=== PATIENT | male | born 1955 | race African-American/Black ===

== ENCOUNTER 2016-09-24 12:18 | Day surgery (SDC) | payer BC ==
[2016-09-23 12:33] VITALS: BMI 31.4
[2016-09-24] MEDS ORDERED: KETOROLAC TROMETHAMINE 30 MG/1 ML VIAL ONE ×2 (14:27→14:35)
[2016-09-24] MEDS ORDERED: ceFAZolin SODIUM 1 GM VIAL ONE (14:27)
[2016-09-24] MEDS ORDERED: ONDANSETRON 4 MG/2 ML VIAL ONE (14:27)
[2016-09-24] MEDS ORDERED: DEXAMETHASONE SOD PHOSPHATE 4 MG/1 ML VIAL ONE (14:27)
[2016-09-24] MEDS ORDERED: PROPOFOL 20 ML ONE (14:28)
[2016-09-24] MEDS ORDERED: MIDAZOLAM HCL 2 MG/2 ML SINGLE DOSE VIAL ONE ×2 (14:28)
[2016-09-24] MEDS ORDERED: ceFAZolin SODIUM 1 GM VIAL IVPB ONE (14:31)
[2016-09-24] MEDS ORDERED: BACITRACIN 15 GM TUBE TOPICAL OINTMENT ONE (15:14)
[2016-09-24] MEDS ORDERED: BACITRACIN 15 GM TUBE TOPICAL OINTMENT TP ONE (15:20)
[2016-09-24] MEDS ORDERED: LIDOCAINE HCL 1%, 10 MG/ML (20ML VIAL) IJ ONE (15:23)
[2016-09-24] MEDS ORDERED: ONDANSETRON 4 MG/2 ML VIAL IVPUSH PRN (15:34)
[2016-09-24] MEDS ORDERED: oxyCODONE HCL 5 MG TABLET PO PRN (15:34)
[2016-09-24] MEDS ORDERED: PROMETHAZINE HCL 25 MG/1 ML VIAL IVPUSH PRN (15:34)
--- NOTE | 2016-09-24 15:41 | OP ---
Operative Note - Note: Operative Date: 09/24/16 Pre-Operative Diagnosis: Right facial mass Operation: Excision of right facial mass Post-Operative Diagnosis: Same as Pre-op Surgeon: Osmar Lewis Anesthesia: Local, MAC Specimens Removed: Right facial mass Estimated Blood Loss (mls): 50 Operative Report Dictated: Yes
--- NOTE | 2016-09-24 15:41 | HP ---
History & Physical Update - History History: No Change - Physical Physical: No Change - Assessment Assessment: No Change - Plan Plan: No Change Currently as noted:: Right facial mass- for excision
[2016-09-24 16:27] VITALS: TEMP 98.1
--- NOTE | 2016-09-24 16:31 | OP ---
DATE OF OPERATION: 09/24/2016 SURGEON: Paul Lewis MD PREOPERATIVE DIAGNOSIS: Right facial mass. POSTOPERATIVE DIAGNOSIS: Right facial mass. SPECIMEN: Right facial mass. ESTIMATED BLOOD LOSS: 50 mL. ANESTHESIA: MAC/local. REASON FOR PROCEDURE: This is a 61-year-old gentleman who presented to the office for a right facial mass anterior to the right ear that he had for some time. It has increased in size. Because of this, he desired excision. The risks and benefits of the procedure were explained. These included bleeding, infection, recurrence of the mass, injury to surrounding structures including vessel injury, nerve injury, gland injury, hematoma, seroma. It was specifically explained to him about injury to the facial nerve and its sequelae. He understood and signed informed consent. DESCRIPTION OF PROCEDURE: The patient was placed supine on the operating room table. He underwent MAC by Anesthesia. The area was prepped and draped with Betadine in the usual sterile fashion. Timeout was performed. Lidocaine was injected locally. An incision was made over the area of the mass and dissection was performed. This was done with both electrocautery as well as sharp scissors. The mass was fully circumscribed and dissected and sent off the field as specimen. Hemostasis was achieved with both electrocautery and silk suture for control of vessels. Copious irrigation and suction was performed. Hemostasis was noted. The area was packed with Surgicel dressing. A 3-0 Vicryl suture was used to close the deep dermal tissue, and 4-0 Biosyn was used to close the subdermal layer. Steri-Strips were applied and Betadine ointment placed on top. Sterile dressings were applied. The patient tolerated the procedure well, was transferred to recovery room in stable condition. PAUL LEWIS M.D. WENCESLAO/[id number]
[2016-09-24 18:03] VITALS: BP 144/85; PULSE 98
--- NOTE | 2016-10-05 09:04 | PATH ---
Surgical Pathology Report Patient Name: LAYTON GARNETT [facility]. Rec. #: [id number] /Age/Gender: 1955 (Age: 61) / M Account: [id number] Location: AMBULATORY SURG Taken: 09/24/2016 Received: 09/25/2016 Reported: 10/05/2016 Physicians: Osmar Lewis M.D. Specimen(s) Received RIGHT FACIAL MASS Clinical History Right facial mass Final Diagnosis SOFT TISSUE, RIGHT FACIAL MASS, EXCISION: BENIGN FIBROFATTY TISSUE AND SKELETAL MUSCLE WITH PROMINENT REACTIVE LYMPHOID INFILTRATE /HYPERPLASIA (SEE COMMENT). Comment: This case was seen in consultation with hematopathology service at [place], [place] ([id number], Dr. Foley). The diagnosis above reflects the consultation opinion. Sections show fibroadipose tissue with skeletal muscle and a prominent lymphoid infiltrate. The architecture of the lymphoid cells is vaguely nodular. There occasional disrupted follicles. The interfollicular areas are comprised predominantly of small polymorphous lymphocytes with occasional scattered larger cells. Immunohistochemical stains for CD20 and CD3 highlight a mixed population of B-cells and T-cells respectively. The vague germinal centers are positive for CD20 and additionally positive for CD10 and BCL-6. They are negative for BCL-2. Stains for CD21 and CD23 highlight the disrupted follicular dendritic meshworks in the germinal centers. Stain for CD43 and CD5 are similar to CD3; PAX5 is similar to CD20. Stain for CD30 highlight infrequent scattered immunoblasts. Stain for Cyclin-D1 is negative from lymphocytes. The stain for CD138 highlights rare scattered plasma cells. In situ hybridization for [place] and Lambda light chains shows rare plasma cells to be polytypic. DIAMANTE LAMAR is negative. Immunohistochemical stains for CD20, CD3, CD5, PAX5, BCL-6, BCL-2 were performed at [place], [place] ([id number]) and interpreted at [facility]. Electronically Signed Deon Read M.D. Gross Description Received in formalin labeled "right facial mass" are 2 beverly, irregular, unoriented portions of soft tissue measuring 1.2 x 0.8 x 0.6 cm and 1.5 x 0.9 x 0.8 cm. The specimens are inked blue and serially sectioned. Sectioning reveals beverly-yellow fibrous parenchyma. The specimen is entirely submitted in 6 cassettes as follows: 4-5-ugeeddcu submitted smaller portion of tissue; 1-2-kdokabhg submitted larger portion of tissue. 09/25/201609/25/2016
== END 2016-09-24 18:08 | disposition home or self-care (01) ==
LOC: JASUSAT 12:18
PROVIDERS: ATTEND Surgery
PROC: 0KB10ZZ Excision of Facial Muscle, Open Approach (ICD-10-PCS; principal; 2016-09-24 14:00)
DX: D21.0 Benign neoplasm of connective and other soft tissue of head, face and neck (principal)
CPT/HCPCS: 88305-TC; 94760

== ENCOUNTER 2017-09-03 08:42 | Day surgery (SDC) | payer BC ==
[2017-09-03 09:03] LABS: HEMATOCRIT 43.7 % (35.4-49); HEMOGLOBIN 14.6 GM/dL (11.7-16.9); MCH 29.2 pg (25.7-33.7); MCHC 33.4 g/dl (32.0-35.9); MEAN CELL VOLUME 87.3 fl (80-96); MEAN PLT VOLUME 8.7 fl (7.5-11.1); PLATELET COUNT 222 K/MM3 (134-434); RBC 5.01 M/mm3 (4.00-5.60); RDW 13.6 % (11.9-15.9); WHITE BLOOD COUNT 6.5 K/mm3 (4.0-10.0)
[2017-09-03 09:07] VITALS: TEMP 98.4
[2017-09-03] MEDS ORDERED: LIDOCAINE HCL 1%, 10 MG/ML (20ML VIAL) ONE (09:23)
[2017-09-03 09:32] LABS: ALBUMIN 3.8 g/dl (3.4-5.0); ANION GAP 9 (8-16); BILIRUBIN,DIRECT 0.2 mg/dL (0.0-0.2); BILIRUBIN,TOTAL 0.7 mg/dL (0.2-1.0); BLOOD UREA NITROGEN 17 mg/dL (7-18); CALCIUM 9.3 mg/dL (8.5-10.1); CHLORIDE 103 mmol/L (98-107); CO2 27 mmol/L (21-32); CREATININE 0.9 mg/dL (0.7-1.3); GLUCOSE,RANDOM 207 mg/dL (74-106); LDH 184 U/L (87-241); POTASSIUM 4.2 mmol/L (3.5-5.1); SGOT/AST 16 U/L (15-37); SODIUM 139 mmol/L (136-145); URIC ACID 3.9 mg/dL (2.6-7.2)
[2017-09-03 09:33] LABS: INR 1.01 (0.82-1.09); PROTHROMBIN TIME (PATIENT) 11.4 SEC (9.7-13.0)
[2017-09-03 09:34] LABS: ALK PHOS 104 U/L (45-117); SGPT/ALT 33 U/L (12-78); TOT PROT 7.1 g/dl (6.4-8.2)
[2017-09-03 09:36] LABS: ACTIVATED PTT 26.5 SECONDS (26.9-34.4)
[2017-09-03] MEDS ORDERED: IBUPROFEN 600 MG TABLET (FP) PO ONE (10:45)
[2017-09-03 10:54] VITALS: BP 118/69; PULSE 82
--- NOTE | 2017-09-03 10:55 | HP ---
Admitting History and Physical - Admission Chief Complaint: Lymphoma-- For bone marrow History Source: Patient, Medical Record, Transfer Record - Past Medical History Cardiovascular: Yes: HTN, Hyperlipdemia Endocrine: Yes: Diabetes Mellitus - Past Surgical History Past Surgical History: Yes: Appendectomy - Smoking History Smoking history: Never smoked Have you smoked in the past 12 months: No - Alcohol/Substance Use Hx Alcohol Use: No - Social History Other Social History: [employer] working Home Medications - Allergies Allergies/Adverse Reactions: Allergies Allergy/AdvReac Type Severity Reaction Status Date / Time No Known Allergies Allergy Verified 09/24/16 13:07 - Home Medications Home Medications: Ambulatory Orders Aspirin [ASA -] 81 mg PO DAILY tab.chew 06/28/14 Atorvastatin Ca [Lipitor] 10 mg PO HS tablet 06/28/14 Glimepiride [Amaryl -] 4 mg PO BIDAC tablet 06/28/14 Esomeprazole Magnesium [Nexium 24Hr] 40 mg PO DAILY 09/23/16 Insulin Glargine,Hum.rec.anlog [Lantus Solostar PEN (NF)] 16 units SQ ACDIN 08/05 Metformin HCl [Metformin HCl ER] 1,000 mg PO BIDAC 09/23/16 Metoprolol Succinate [Toprol XL -] 25 mg PO DAILY 09/23/16 Pravastatin Sodium [Pravachol (Nf)] 40 mg PO DAILY 09/23/16 Amlodipine/Atorvastatin [Amlodipine-Atorvast 5-10 mg] 1 each PO DAILY 09/24/16 Docusate Sodium [Colace -] 100 mg PO TID #90 capsule 09/24/16 Oxycodone HCl/Acetaminophen [Percocet 5-325 mg Tablet] 1 - 2 tab PO Q6H #28 tab MDD 4 09/24/16 Review of Systems - Review of Systems Constitutional: reports: No Symptoms Eyes: reports: No Symptoms HENT: denies: Difficult Swallowing, Epistaxis Neck: reports: Swollen Glands Cardiovascular: reports: No Symptoms Respiratory: reports: No Symptoms Gastrointestinal: reports: No Symptoms Musculoskeletal: reports: No Symptoms Integumentary: reports: No Symptoms (8 x 4 cm right pre auricular mass) Hematology/Lymphatic: reports: No Symptoms Psychiatric: reports: No Symptoms Physical Examination Vital Signs: Vital Signs Temperature 98.4 F 09/03/17 09:05 Pulse Rate 79 09/03/17 09:05 Respiratory Rate 18 09/03/17 09:05 Blood Pressure 123/75 09/03/17 09:05 O2 Sat by Pulse Oximetry (%) Constitutional: Yes: Well Nourished Eyes: Yes: WNL HENT: Yes: Other ( 8 x4 cm right pre-auricular mass - nodular) Neck: Yes: Supple Cardiovascular: Yes: Regular Rate and Rhythm Respiratory: Yes: Regular Gastrointestinal: Yes: Normal Bowel Sounds, Soft. 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 For bone marrow aspirate biopsy. For sono of left neck mass. Code(s): R22.0 - LOCALIZED SWELLING, MASS AND LUMP, HEAD
--- NOTE | 2017-09-03 11:14 | PROC ---
Bone Marrow Aspiration/Biopsy - Consent Indication: To stage disease Risks and Benefits Explained: Yes Consent on Chart: Yes - Procedure Location: Right Iliac Crest Anesthesia: 1% Lidocaine Sterile Technique: Yes Specimen: Obtained Position: Supine Patient tolerated procedure: Well with minimal pain Sterile Dressing Applied: Yes Remarks: Out patient follow up.
[2017-09-06 00:06] LABS: BETA-2-MICROGLOBULIN 1.3 mg/L (0.6-2.4)
--- NOTE | 2017-09-09 13:05 | PATH ---
Surgical Pathology Report Patient Name: LAYTON GARNETT [facility]. Rec. #: [id number] /Age/Gender: 1955 (Age: 62) / M Account: [id number] Location: AMBULATORY SURG Taken: 09/03/2017 Received: 09/03/2017 Reported: 09/09/2017 Physicians: Jonn Soni M.D. Specimen(s) Received A: BONE MARROW BIOPSY B: BONE MARROW ASPIRATION SMEARS C: BONE MARROW BLOOD Clinical History Cutaneous follicle center lymphoma staging bone marrow Final Diagnosis COMPREHENSIVE FLOW PANEL performed and interpreted at [place], [place] ([id number]) shows the following: INTERPRETATION: NO CLONAL LYMPHOID EXPANSION DETECTED ADDITIONAL TESTS: Cytogenetics FISH See [facility] report ([id number]) for additional details. NHL performed and interpreted at [facility] ([id number]) shows the following: INTERPRETATION: No IGH/BCL2 t(14;18) translocation is detected. No CCND1/IGH t(11;14) translocation is detected. No MYC (8q24) rearrangement is detected. No BCL6 (3q27) rearrangement is detected. COMMENTS: Correlation with pending cytogenetics ([id number]) is recommended. Four multiplex probe stain procedures were performed. See [facility] report for additional details ([id number]) BONE MARROW MORPHOLOGY performed and interpreted at [facility] ([id number]) shows the following: DIAGNOSIS: Bone marrow, aspirate and core biopsy: Normocellular marrow (40-50%) with trilineage hematopoiesis. No evidence of lymphoma. See comment. COMMENT: Flow cytometric analysis of the bone marrow showed no clonal lymphoid expansion. B-cells were polyclonal. See [facility] report for additional details ([id number]) Electronically Signed Freya Dawn M.D. Addendum Reported: 09/15/2017 Addendum Diagnosis CYTOGENETIC KARYOTYPE ANALYSIS performed and interpreted at [facility] ([id number]) shows the following: RESULTS: 46,XY [20] INTERPRETATION: Normal Karyotype Within the limits of the cytogenetic methods, the chromosomes had normal G-banding patterns with no evidence of an acquired clonal numerical or structural abnormality. This normal result does not rule out a neoplasm. Subtle rearrangements or the presence of an aberrant clone in a low proportion of cells cannot be ruled out. Correlation with other clinical and hematologic data is suggested. Analysis was performed on cells from an unstimulated tissue culture and a tissue culture that was stimulated with lymphoid mitogens. See [facility]ge report for additional details ([id number]) Freya Dawn M.D. Gross Description Received in formalin labeled "bone marrow biopsy" are multiple dark brown cylindrical portions of blood and bone tissue measuring aggregate 1.5 x 1.0 x 0.2 cm. The specimen is entirely submitted in 1 cassette after decalcification. RENITA/09/03/2017 shalini09/03/2017
== END 2017-09-03 13:27 | disposition home or self-care (01) ==
LOC: J7W 08:42 → JASUSAT 08:42
PROVIDERS: ATTEND Internal Medicine Hematology & Oncology
PROC: 07DR3ZX Extraction of Iliac Bone Marrow, Percutaneous Approach, Diagnostic (ICD-10-PCS; principal; 2017-09-03)
DX: C82.60 Cutaneous follicle center lymphoma, unspecified site (principal); E11.9 Type 2 diabetes mellitus without complications; Z79.4 Long term (current) use of insulin
CPT/HCPCS: 36415; 76536-TC; 80048; 80076; 82232; 82784; 83615; 84550; 85027; 85610; 85730; 88300-TC; 88305-TC; 88311-TC; 88313-TC

== ENCOUNTER 2017-10-06 09:48 | Day surgery (SDC) | payer BC ==
[2017-10-05 16:04] VITALS: BMI 32.4
[2017-10-06 10:42] LABS: BASO % 0.4 % (0-2.0); EOS % 4.5 % (0-4.5); HEMOGLOBIN 14.2 GM/dL (11.7-16.9); INR 1.09 (0.82-1.09); LYMPH % 33.6 % (8-40); MCH 28.8 pg (25.7-33.7); MCHC 33.1 g/dl (32.0-35.9); MEAN CELL VOLUME 86.9 fl (80-96); MEAN PLT VOLUME 8.9 fl (7.5-11.1); MONO % 10.2 % (3.8-10.2); NEUT % 51.3 % (42.8-82.8); PLATELET COUNT 236 K/MM3 (134-434); PROTHROMBIN TIME (PATIENT) 12.3 SEC (9.7-13.0); RBC 4.95 M/mm3 (4.00-5.60); RDW 13.7 % (11.9-15.9); WHITE BLOOD COUNT 6.3 K/mm3 (4.0-10.0)
[2017-10-06 13:40] VITALS: TEMP 98.4
[2017-10-06 15:28] VITALS: BP 120/80; PULSE 90
--- NOTE | 2017-10-12 17:24 | PATH ---
Surgical Pathology Report Patient Name: LAYTON GARNETT [facility]. Rec. #: [id number] /Age/Gender: 1955 (Age: 62) / M Account: [id number] Location: RADIOLOGY INTER Taken: 10/06/2017 Received: 10/06/2017 Reported: 10/12/2017 Physicians: Abner Guillen M.D. Jonn Soni M.D. Specimen(s) Received LEFT LYMPH NODE (ALSO RECEIVED TISSUE IN RPMI) Clinical History 62-year-old male with history of right cheek cutaneous follicular lymphoma now with enlarging left supraclavicular lymph node PET(-) Final Diagnosis SUPRACLAVICULAR, LYMPH NODE, LEFT, ULTRASOUND GUIDED CORE BIOPSY: PREDOMINANTLY FATTY SOFT TISSUE WITH SCANT FIBROUS TISSUE. NO LYMPHOID TISSUE IDENTIFIED. Comment: Findings are not diagnostic of lymph node sampling. Immunohistochemical stain performed and interpreted at [facility] show isolated CD20+ B cells. Immunohistochemical stains performed at [facility], [place], [place] ([id number]) and interpreted at [facility] show rare CD3+ T cells. No features of lymphoma identified in this material. Concurrent Lymphoproliferative flow panel performed and interpreted at [facility], [place], [place] ([id number]) shows a limited sample with decreased viability, suboptimal for evaluation; clonal B-cell populations are not detected. History of cutaneous B-cell lymphoma as noted. Prior materials are noted. Suggest clinical/radiological relation. See [facility] report ([id number]) for additional details. Electronically Signed Ary Gamez M.D. Gross Description Received in formalin labeled "left mass," are 5 beverly-yellow, cylindrical portion of soft tissue ranging from 0.6-1.6 cm in length and averaging 0.1 cm in diameter. The specimens are submitted in toto in one cassette. There is additional tissue received in RPMI solution which is sent for flow cytometry. /10/06/2017 saudi10/06/2017
== END 2017-10-06 14:30 | disposition home or self-care (01) ==
LOC: JRADIR 09:48
PROVIDERS: ATTEND Internal Medicine Hematology & Oncology
PROC: 07B20ZX Excision of Left Neck Lymphatic, Open Approach, Diagnostic (ICD-10-PCS; principal; 2017-10-06)
DX: D36.7 Benign neoplasm of other specified sites (principal)
CPT/HCPCS: 36415; 76942-TC; 85025; 85610; 87899; 88305-TC

== ENCOUNTER 2024-10-19 13:58 | Emergency (ER) | payer OTHER, BC ==
[2024-10-19 14:11] VITALS: BMI 30.7
[2024-10-19 17:16] LABS: MCHC 31.4 g/dl (32.3-36.5); MEAN CELL VOLUME 91.2 fl (79.0-92.2); MEAN PLT VOLUME 10.2 fl (9.4-12.4); RDW 13.4 % (12.2-16.4)
[2024-10-19 17:45] LABS: GLUCOSE,RANDOM 71.0 mg/dL (74-106)
[2024-10-19 17:46] LABS: CO2 28.0 mmol/L (21-32)
[2024-10-19 17:48] LABS: CREATININE 0.9 mg/dL (0.55-1.3); SGOT/AST 18.0 U/L (15-37); SGPT/ALT 35.0 U/L (13-61)
[2024-10-19 17:51] LABS: ALK PHOS 87.0 U/L (45-117); TOT PROT 6.5 g/dl (6.4-8.2)
[2024-10-19 17:55] LABS: INR 1.11 (0.83-1.09); PROTHROMBIN TIME (PATIENT) 12.2 SEC (9.7-13.0)
[2024-10-19 17:57] LABS: ACTIVATED PTT 28.5 SECONDS (25.2-36.5)
[2024-10-19 20:25] LABS: HCV DIAGNOSTIC IN-HOUSE W/RFLX NON-REACTIVE (NONREACTIVE)
[2024-10-19 20:26] LABS: HIV INTERPRETATION NEGATIVE (NEGATIVE)
[2024-10-19 23:16] VITALS: BP 120/70; PULSE 87; RESP 16; TEMP 98.4
== END 2024-10-19 23:55 | disposition home or self-care (01) ==
LOC: JER 13:58
DX: R07.9 Chest pain, unspecified (principal); R04.2 Hemoptysis; R25.1 Tremor, unspecified
CPT/HCPCS: 36415; 71045-TC-FY; 71275-TC; 80053; 82550; 82553; 82962; 84484; 85027; 85610; 85730; 86803; 87389; 93005; 93010; 99285-25; Q9967